=== PATIENT | male | born 1995 | race Caucasian/White ===

== ENCOUNTER 2018-02-06 03:13 | Emergency (ER) | payer MEDICAID, BC | END 2018-02-06 06:41 | disposition home or self-care (01) | LOC: FTE 03:13 | DX: Z46.89 Encounter for fitting and adjustment of other specified devices (principal) | CPT/HCPCS: 99282; Z7502 ==

== ENCOUNTER 2019-02-26 22:02 | Emergency (ER) | payer MEDICAID | END 2019-02-27 00:13 | disposition home or self-care (01) | LOC: FTE 02-27 00:13 | DX: M54.6 Pain in thoracic spine (principal) | CPT/HCPCS: 99283; Z7502 ==

== ENCOUNTER 2019-05-11 21:33 | Emergency (ER) | payer MEDICAID | END 2019-05-12 00:26 | disposition home or self-care (01) | LOC: FTE 05-12 00:26 | DX: H93.93 Unspecified disorder of ear, bilateral (principal) | CPT/HCPCS: 99283; Z7502 ==